=== PATIENT | male | born 1960 | race Caucasian/White ===

== ENCOUNTER 2020-10-04 13:20 | Inpatient (IN) ==
[2020-10-04] MEDS ORDERED: CeFAZolin Syr 2,000MG/20 ML 2,000 MG/20 ML SYRINGE IVPB ONE (13:37)
[2020-10-04] MEDS ORDERED: Ringers Solution, Lactated 1,000 ML IVC SCH (13:45)
[2020-10-04] MEDS ORDERED: *HR* OxyCODONE Immed Rel 5 MG TABLET PO PRN (14:43)
[2020-10-04] MEDS ORDERED: Promethazine 6.25 MG in Water for inj. (sterile) 20 ML IVPB PRN (14:43)
[2020-10-04] MEDS ORDERED: Ondansetron 4 MG/2 ML VIAL IVP PRN ×2 (14:43→22:22)
[2020-10-04] MEDS ORDERED: *HR* HYDROmorphone PF 0.5 MG/0.5 ML SYRINGE IVP PRN (14:43)
[2020-10-04] MEDS ORDERED: ceFAZolin 1,000 MG, Sodium Chloride IRRigation 1,000 ML IR ONE (15:45)
[2020-10-04] MEDS ORDERED: Heparin 1,000 UNITS/500 mL 1,000 ML ONE (17:24)
[2020-10-04] MEDS ORDERED: Protamine Sulfate 50 MG/5 ML VIAL IVP ONE (17:24)
[2020-10-04] MEDS ORDERED: *HR* Remifentanil 2 MG VIAL IVP ONE (17:38)
[2020-10-04] MEDS ORDERED: *HR* Propofol 200 MG/20 ML VIAL IVP ONE (17:40)
[2020-10-04] MEDS ORDERED: Lidocaine -MPF 2% 2 ML VIAL ONE (17:40)
[2020-10-04] MEDS ORDERED: *HR* Midazolam HCl 2 MG/2 ML VIAL ONE (17:40)
[2020-10-04] MEDS ORDERED: *HR* Rocuronium Bromide 50 MG/5 ML VIAL ONE ×2 (17:40→20:03)
[2020-10-04] MEDS ORDERED: *HR* FentaNYL (PF) 100 MCG/2 ML VIAL ONE (17:40)
[2020-10-04] MEDS ORDERED: Lidocaine HCL 4 ML Topical Solution (Laryng-O-Jet Kit Sterile Pak) TP ONE (17:40)
[2020-10-04] MEDS ORDERED: *HR* Phenylephrine 10 MG/ML VIAL ONE (17:43)
[2020-10-04] MEDS ORDERED: *HR* PHENYLEPHRINE 1,000 MCG/10 ML SYRINGE IVP ONE (17:43)
[2020-10-04] MEDS ORDERED: EPHEDrine 50 MG/ML VIAL ONE (19:31)
[2020-10-04] MEDS ORDERED: Dexamethasone 4 MG/ML VIAL ONE (19:36)
[2020-10-04] MEDS ORDERED: Ondansetron 4 MG/2 ML VIAL ONE (19:36)
[2020-10-04] MEDS ORDERED: *HR* Heparin 5,000 UNIT/ML VIAL ONE ×2 (19:59→20:53)
[2020-10-04] MEDS ORDERED: Sugammadex Sodium 200 MG/2 ML VIAL IV ONE (20:37)
[2020-10-04] MEDS ORDERED: *HR* Labetalol 20 MG/4 ML SYRINGE IVP ONE (22:03)
[2020-10-04] MEDS ORDERED: Naloxone 0.4 MG/ML INJ IVP PRN (22:22)
[2020-10-04] MEDS ORDERED: *HR* Labetalol 20 MG/4 ML SYRINGE IVP PRN (22:22)
[2020-10-04] MEDS ORDERED: Acetaminophen 325 MG TABLET PO PRN (22:22)
[2020-10-04] MEDS ORDERED: 0.9 % Sodium Chloride 1,000 ML IVC SCH (22:22)
[2020-10-04] MEDS: CeFAZolin 2 GM/120 ML BAG IVPB SCH (23:38)
[2020-10-05] MEDS: *HR* HYDROcodone/Acet 5/325 mg TABLET PO PRN ×2 (03:51→13:12)
[2020-10-05 04:23] LABS: Basophils % 0.2 %; Eosinophils % 0.1 %; Hematocrit 33.4 % (37.5-50.1); Hemoglobin 11.4 g/dL (12.9-16.9); Immature Granulocytes % 0.6 % (0-4); Lymphocytes # 0.5 K/mcL (0.6-4.6); Lymphocytes % 5.4 %; Mean Corpuscular HGB Conc 34.1 g/dL (31.6-35.5); Mean Corpuscular Hemoglobin 30.7 pg (28.0-33.3); Mean Platelet Volume 9.9 fL (9.4-12.4); Monocytes # 0.5 K/mcL (0.0-1.3); Monocytes % 5.1 %; Neutrophils # 8.5 K/mcL (1.6-8.9); Platelet Count 173 K/mcL (140-400); Red Blood Count 3.71 M/mcL (4.19-5.50); Red Cell Distribution Width 13.1 % (11.5-14.5); Segmented Neutrophils % 88.6 %; White Blood Count 9.6 K/mcL (4.3-11.1)
[2020-10-05 04:41] LABS: BUN/Creatinine Ratio 17 (6-26); Blood Urea Nitrogen 13 mg/dL (8-23); Calcium 8.3 mg/dL (8.6-10.3); Carbon Dioxide 24 mEq/L (23-29); Chloride 97 mEq/L (98-107); Glucose 152 mg/dL (70-105); Osmolality,Calculated 273 (280-300); Potassium 4.1 mEq/L (3.5-5.1); Sodium 130 mEq/L (136-145); eGFR For African Americans > 60 (> 60); eGFR For Non-African Americans > 60 (> 60)
[2020-10-05] MEDS: CeFAZolin 2 GM/120 ML BAG IVPB SCH ×2 (07:59→16:10)
[2020-10-05] MEDS ORDERED: Valsartan 160 MG TABLET PO SCH (09:00)
[2020-10-05] MEDS ORDERED: Aspirin Enteric Coated 81 MG Tablet PO SCH (09:00)
[2020-10-05] MEDS ORDERED: hydroCHLOROthiazide 25 MG TABLET PO SCH (09:00)
[2020-10-05 16:04] VITALS: BP 116/66
== END 2020-10-05 18:30 | disposition home or self-care (01) | DRG 39 ==
LOC: SAMDAY 13:20 → 2NNU 18:20
PROVIDERS: ADMIT Surgery Vascular Surgery; ATTEND Surgery Vascular Surgery

== ENCOUNTER 2020-10-25 06:30 | Inpatient (IN) ==
[~2020-10-25 06:30] MED LIST: Acetaminophen IV 1,000 MG/100 ML INFUS..BTL IVPB ONE; Famotidine 20 MG/2 ML VIAL IVP ONE
[2020-10-25] MEDS ORDERED: Heparin 1,000 UNITS/500 mL 500 ML ONE ×3 (06:58→10:20)
[2020-10-25] MEDS ORDERED: *HR* Phenylephrine 10 MG/ML VIAL ONE (07:08)
[2020-10-25] MEDS ORDERED: *HR* Succinylcholine 200 MG/10 ML VIAL IVP ONE (07:12)
[2020-10-25] MEDS ORDERED: Ondansetron 4 MG/2 ML VIAL ONE (07:12)
[2020-10-25] MEDS ORDERED: *HR* FentaNYL (PF) 100 MCG/2 ML VIAL ONE (07:12)
[2020-10-25] MEDS ORDERED: Dexamethasone 4 MG/ML VIAL ONE (07:12)
[2020-10-25] MEDS ORDERED: *HR* Remifentanil 2 MG VIAL IVP ONE (07:12)
[2020-10-25] MEDS ORDERED: *HR* Rocuronium Bromide 50 MG/5 ML VIAL ONE (07:12)
[2020-10-25] MEDS ORDERED: Lidocaine -MPF 2% 2 ML VIAL ONE (07:12)
[2020-10-25] MEDS ORDERED: *HR* Propofol 200 MG/20 ML VIAL IVP ONE (07:12)
[2020-10-25] MEDS ORDERED: Lidocaine -MPF 4% 5 ML AMPUL ONE (07:12)
[2020-10-25] MEDS ORDERED: *HR* Midazolam HCl 2 MG/2 ML VIAL ONE (07:12)
[2020-10-25] MEDS ORDERED: CeFAZolin Syr 2,000MG/20 ML 2,000 MG/20 ML SYRINGE IVPB ONE (07:19)
[2020-10-25] MEDS ORDERED: Ringers Solution, Lactated 1,000 ML IVC SCH (07:30)
[2020-10-25] MEDS ORDERED: ceFAZolin 1,000 MG, Sodium Chloride IRRigation 1,000 ML IR ONE (07:45)
[2020-10-25] MEDS ORDERED: Albuterol 2.5 MG/3 ML NEBULIZER IH PRN (07:51)
[2020-10-25] MEDS ORDERED: Naloxone 0.4 MG/ML INJ IVP PRN ×2 (07:51→12:48)
[2020-10-25] MEDS ORDERED: *HR* HYDROmorphone PF 0.5 MG/0.5 ML SYRINGE IVP PRN (07:51)
[2020-10-25] MEDS ORDERED: *HR* FentaNYL (PF) 100 MCG/2 ML VIAL IVP PRN (07:51)
[2020-10-25] MEDS ORDERED: *HR* Heparin 5,000 UNIT/ML VIAL ONE ×2 (08:23→10:00)
[2020-10-25] MEDS ORDERED: EPHEDrine 50 MG/ML VIAL ONE (08:34)
[2020-10-25] MEDS ORDERED: *HR* Labetalol 20 MG/4 ML SYRINGE IVP ONE (11:06)
[2020-10-25] MEDS ORDERED: *HR* Metoprolol 5 MG/5 ML VIAL IVP ONE (11:11)
[2020-10-25] MEDS ORDERED: *HR* Labetalol 20 MG/4 ML SYRINGE IVP PRN (12:48)
[2020-10-25] MEDS ORDERED: Acetaminophen 325 MG TABLET PO PRN (12:48)
[2020-10-25] MEDS ORDERED: Ondansetron 4 MG/2 ML VIAL IVP PRN (12:48)
[2020-10-25] MEDS: *HR* HYDROcodone/Acet 5/325 mg TABLET PO PRN ×2 (13:08→22:54)
[2020-10-25] MEDS: CeFAZolin 2 GM/120 ML BAG IVPB SCH ×2 (15:34→23:53)
[2020-10-26 04:19] LABS: Basophils % 0.3 %; Eosinophils % 0.2 %; Immature Granulocytes % 0.4 % (0-4); Lymphocytes % 10.7 %; Mean Corpuscular HGB Conc 33.7 g/dL (31.6-35.5); Mean Corpuscular Volume 91.8 fL (83.0-100.0); Mean Platelet Volume 9.9 fL (9.4-12.4); Monocytes # 0.6 K/mcL (0.0-1.3); Monocytes % 6.4 %; Neutrophils # 7.6 K/mcL (1.6-8.9); Platelet Count 157 K/mcL (140-400); Red Blood Count 2.94 M/mcL (4.19-5.50); Red Cell Distribution Width 14.4 % (11.5-14.5); White Blood Count 9.3 K/mcL (4.3-11.1)
[2020-10-26 04:20] LABS: Hemoglobin 9.1 g/dL (12.9-16.9)
[2020-10-26 04:38] LABS: BUN/Creatinine Ratio 16 (6-26); Blood Urea Nitrogen 9 mg/dL (8-23); Calcium 8.1 mg/dL (8.6-10.3); Carbon Dioxide 24 mEq/L (23-29); Chloride 99 mEq/L (98-107); Glucose 100 mg/dL (70-105); Osmolality,Calculated 267 (280-300); Sodium 129 mEq/L (136-145); eGFR For African Americans > 60 (> 60); eGFR For Non-African Americans > 60 (> 60)
[2020-10-26 06:50] VITALS: BP 106/61
[2020-10-26] MEDS ORDERED: Aspirin Enteric Coated 81 MG Tablet PO SCH (09:00)
[2020-10-26] MEDS ORDERED: hydroCHLOROthiazide 25 MG TABLET PO SCH (09:00)
[2020-10-26] MEDS ORDERED: Valsartan 160 MG TABLET PO SCH (09:00)
[2020-10-26] MEDS: *HR* HYDROcodone/Acet 5/325 mg TABLET PO PRN (09:14)
[2020-10-26] MEDS: CeFAZolin 2 GM/120 ML BAG IVPB SCH (09:24)
== END 2020-10-26 12:29 | disposition home or self-care (01) | DRG 39 ==
LOC: SAMDAY 06:30 → ICNU 11:59 → 2NNU 17:13
PROVIDERS: ADMIT Surgery Vascular Surgery; ATTEND Surgery Vascular Surgery